=== PATIENT | male | born 1955 | race Caucasian/White ===

== ENCOUNTER 2019-03-20 19:06 | Emergency (ER) | payer BC ==
[~2019-03-20] VITALS: Ht 175.3 cm; Wt 80.7 kg
== END 2019-03-20 21:24 | disposition home or self-care (01) ==
LOC: ER 19:06
DX: S22.32XA Fracture of one rib, left side, initial encounter for closed fracture (principal); W31.89XA Contact with other specified machinery, initial encounter; Y93.89 Activity, other specified; Y92.89 Other specified places as the place of occurrence of the external cause; Y99.8 Other external cause status